=== PATIENT | female | born 2000 | race Hispanic/Latino ===

== ENCOUNTER 2022-06-16 10:04 | Emergency (ER) | payer OTHER, SELFPAY ==
--- NOTE | ~2022-06-16 | XR_ITS ---
XR foot RT min 3V DATE: 06/16/2022 10:42 INDICATION: Pain laterally for 2 weeks. No known injury. TECHNIQUE: 4 views COMPARISON: None FINDINGS: Os tibiale externum, normal anatomic variant. No fracture, dislocation, periosteal reaction or bone destruction. Slight posterior calcaneal enthesopathy. Mild narrowing at first metatarsophalangeal joint. IMPRESSION: Mild osteoarthritis at first metatarsophalangeal joint Slight posterior calcaneal enthesopathy Reviewed, dictated and finalized at location L. [employer]
--- NOTE | ~2022-06-16 | XR_ITS ---
XR ankle RT min 3V DATE: 06/16/2022 10:43 INDICATION: Pain for 2 weeks. No known injury. TECHNIQUE: 4 views COMPARISON: None FINDINGS: No fracture or dislocation of the ankle or disruption of the ankle mortise. No periosteal r eaction or bone destruction. No soft tissue swelling. Slight posterior calcaneal enthesopathy. IMPRESSION: No significant abnormality of the right ankle Reviewed, dictated and finalized at location L. [employer] ARTIST
[2022-06-16 10:19] VITALS: BP 127/81; PULSE 86; RESP 16; TEMP 36.7; O2SAT 100
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
== END 2022-06-16 10:58 | disposition home or self-care (01) ==
PROVIDERS: Emergency Provider Nurse Practitioner Family; PCP Family Medicine
DX: M77.51 Other enthesopathy of right foot and ankle (principal)
CPT/HCPCS: 73610; 73630; 99203; G0463